=== PATIENT | female | born 1950 ===

== ENCOUNTER 2017-02-08 15:55 | Inpatient (IN) | payer MEDICARE ==
[2017-02-08 15:56] VITALS: BMI 34.7
[2017-02-08] MEDS ORDERED: Enalaprilat 2.5 MG/2 ML IV STA (16:35)
[2017-02-08] MEDS ORDERED: Enalaprilat 2.5 MG/2 ML ONE (16:43)
[2017-02-08 16:44] LABS: BASO # 0.1 K/uL (0.0-0.2); BASO % 0.7 % (0.0-2.0); EOS # 0.2 K/uL (0.0-0.7); EOS % 2.5 % (0.0-4.0); HEMATOCRIT 38.7 % (34.0-47.0); LYMPH # 1.1 K/uL (1.0-4.3); MEAN CELL VOLUME 74.2 fL (81.0-99.0); MEAN CORPUSCULAR HEMOGLOBIN 23.6 pg (27.0-31.0); MEAN CORPUSCULAR HGB CONC 31.8 g/dL (33.0-37.0); MEAN PLATELET VOLUME 8.5 fL (7.2-11.7); MONO # 0.5 K/uL (0.0-0.8); MONO % 5.6 % (0.0-10.0); WHITE BLOOD COUNT 9.3 K/uL (4.8-10.8)
[2017-02-08 16:52] LABS: CHLORIDE 94 mmol/L (98-107); INR 0.9
[2017-02-08 16:53] LABS: SODIUM 134 mmol/L (132-148)
[2017-02-08 16:55] LABS: ALB/GLOB RATIO 0.9 (1.0-2.1); ALKALINE PHOSPHATASE 135 U/L (38-126); ALT/SGPT 23 U/L (9-52); AST/SGOT 23 U/L (14-36); BILIRUBIN,TOTAL 0.3 mg/dL (0.2-1.3); BLOOD UREA NITROGEN 17 mg/dL (7-17); CARBON DIOXIDE 25 mmol/L (22-30); GFR AFRICAN-AMERICAN > 60; GLUCOSE,RANDOM 189 mg/dL (65-105); TOTAL PROTEIN 7.7 g/dL (6.3-8.3)
[2017-02-08 16:56] LABS: CALCIUM 8.8 mg/dl (8.6-10.4); MAGNESIUM 1.8 mg/dL (1.6-2.3)
--- NOTE | 2017-02-08 17:00 | C.PDOC ---
Time Seen by Provider: 02/08/17 16:24 Chief Complaint (Nursing): High Blood Pressure History Per: Patient, Health Care Law Specialist History/Exam Limitations: language barrier Onset/Duration Of Symptoms: Hrs Current Symptoms Are (Timing): Still Present Associated Symptoms: Headache Severity: Moderate Exacerbating Factor(s): Pos: Increased Salt/Salty Foods Additional History Per: Prior Records Past Medical History Reviewed: Historical Data, Nursing Documentation, Vital Signs Vital Signs: Last Vital Signs Temp 97.2 F L 02/08/17 16:00 Pulse 59 L 02/08/17 18:09 Resp 20 02/08/17 18:09 BP 203/69 H 02/08/17 19:00 Pulse Ox 97 02/08/17 18:09 - Medical History PMH: HTN - [facility] Procedures COLONOSCOPY (05/19/13) ESOPHAGEAL DILATION (07/15/13) ESOPHAGOGASTRODUODENOSCOPY [EGD] W/CLOSED BIOPSY (07/15/13) OTHER ESOPHAGOSCOPY (05/19/13) Family History: States: Unknown Family Hx - Social History Hx Alcohol Use: No Hx Substance Use: No - Immunization History Hx Tetanus Toxoid Vaccination: No Hx Influenza Vaccination: Yes Hx Pneumococcal Vaccination: No Review Of Systems Except As Marked, All Systems Reviewed And Found Negative. Constitutional: Negative for: Fever, Weakness Cardiovascular: Negative for: Chest Pain Respiratory: Negative for: Shortness of Breath Gastrointestinal: Negative for: Vomiting, Abdominal Pain Musculoskeletal: Negative for: Neck Pain, Back Pain Skin: Negative for: Rash Neurological: Positive for: Headache. Negative for: Weakness, Numbness, Seizures, Altered Mental Status Physical Exam - Physical Exam Appears: Non-toxic, No Acute Distress Skin: Normal Color, Warm, Dry, No Rash Head: Atraumatic, Normacephalic Eye(s): bilateral: PERRL, EOMI Neck: Normal ROM, Supple Cardiovascular: Rhythm Regular Respiratory: Normal Breath Sounds, No Accessory Muscle Use Gastrointestinal/Abdominal: Soft, No Tenderness Back: No CVA Tenderness Extremity: Normal ROM Neurological/Psych: Oriented x3, Normal Speech, Normal Cognition, No Cerebellar Signs, Normal Motor, Normal Sensation ED Course And Treatment - Laboratory Results Result Diagrams: 02/08/17 16:41 02/08/17 16:41 Lab Interpretation: No Acute Changes ECG: Interpreted By Me, Viewed By Me ECG Rhythm: Sinus Rhythm, Nonspecific Changes ECG Interpretation: Abnormal Interpretation Of ECG: LVH with a strain pattern. Rate From EC O2 Sat by Pulse Oximetry: 98 Pulse Ox Interpretation: Normal - CT Scan/US CT head Other Rad Studies (CT/US): Read By Radiologist, Radiology Report Reviewed CT/US Interpretation: IMPRESSION: No evidence of acute intracranial hemorrhage intracranial collection mass effect or midline shift. - Physician Consult Information Physician Contacted: Jeff Barrera (ICU) Outcome Of Conversation: He evaluated pt in the ED and did not accept to ICU. Progress - Interventions Interventions:: Observation - Medications Administered Oral: Antihypertensive Intravenous: Antihypertensive - Data Reviewed Data Reviewed: Lab, Diagnostic imaging, EKG, Old records - Patient Status Patient status: Partially improved - Critical Care Citical Care: Excluding Proc Time Critical Care Time: 60 minutes - Continuity of Care Discussed patient case with:: Patient, Family-HIPPA compliant, ED Nurse, Covering for PMD Discussed pt. case with bridal sales consultant/specialty: Pulmonary/Crit. Care - Patient Plan Patient Plan: Admission, Telemetry Disposition Discussed With : Rebecca Hernandez Comment: He accepted pt on his service. Doctor Will See Patient In The: Hospital Counseled Patient/Family Regarding: Studies Performed, Diagnosis - Disposition Disposition: HOSPITALIZED Disposition Time: 21:21 Condition: GUARDED - Clinical Impression Clinical Impression: Hypertensive urgency
--- NOTE | 2017-02-08 17:37 | CT ---
PROCEDURE: CT HEAD WITHOUT CONTRAST. HISTORY: Headache, HTN COMPARISON: None available. TECHNIQUE: Axial computed tomography images were obtained through the head/brain without intravenous contrast. This CT exam was performed using one or more of the following dose reduction techniques: Automated exposure control, adjustment of the mA and/or kv according to patient size, and/or use of iterative reconstruction technique. Radiation dose: Total exam DLP = 792.29 mGy-cm. FINDINGS: HEMORRHAGE: No intracranial hemorrhage. BRAIN: No mass effect or edema. No atrophy or chronic microvascular ischemic changes. VENTRICLES: Unremarkable. No hydrocephalus. CALVARIUM: Unremarkable. PARANASAL SINUSES: Unremarkable as visualized. No significant inflammatory changes. MASTOID AIR CELLS: Unremarkable as visualized. No inflammatory changes. OTHER FINDINGS: None. IMPRESSION: No evidence of acute intracranial hemorrhage intracranial collection mass effect or midline shift.
[2017-02-08] MEDS ORDERED: Labetalol 25mg/5ml Syringe IVP STA (17:51)
[2017-02-08] MEDS ORDERED: Labetalol 25mg/5ml Syringe ONE (17:59)
[2017-02-08] MEDS ORDERED: Nitroglycerin 50mg in D5W 250 ML IV STA (19:49)
[2017-02-08] MEDS ORDERED: Nitroglycerin 50mg in D5W 250 ML IV ONE (19:54)
--- NOTE | 2017-02-08 22:20 | CP.PCM.CON ---
History of Present Illness - History of Present Illness History of Present Illness: 66 F evaluated for HTN. PMH of HTN on 5 meds, Coreg 25mg bid, bystolic 20mg, Valsartan 360, hctz 12.5, nitro patch, h/o CAD s/p PCI x3, h/o niddm, was sent in to hospital for HTN from pmd office. Patient was refereed to pmd office from her opthalmologist office for htn where she went for routine eval. In ER BP ranged systolic in 200s, distolic in 70-80. Patient denies sob, cp, nvd, dizziness, c/o slight headache in the back of head, but nothing unusual. In ER patient received enalpril 2.5mg iv, labetalol 20mg iv, norvasc 5mg oral, bp remained unchanged. Nitro drip was then started and icu eval called. Patient evaluated above history confirmed, and patient was in no distress PMH as above Allergies ampicillin Meds reviewed above + metformin, dexilant Family history not contributory Social Denies alcohol, drugs, smoking ativan 0.5mg added and nitro patch put again, nitro drip stopped Repeat bp 181/49 =>140/49 Review of Systems - Review of Systems All systems: reviewed and no additional remarkable complaints except (HPI) Past Patient History - Past Social History Smoking Status: Never Smoked Alcohol: None - CARDIAC Hx Hypertension: Yes - HEENT Hx Cataracts: Yes - ENDOCRINE/METABOLIC Hx Diabetes Mellitus Type 2: Yes - PSYCHIATRIC Hx Substance Use: No - ANESTHESIA Hx Anesthesia: No Meds Allergies/Adverse Reactions: Allergies Allergy/AdvReac Type Severity Reaction Status Date / Time ampicillin Allergy Verified 02/08/17 16:38 Physical Exam - Additional Findings Additional findings: * HEENT BESSY * Neck supple * Chest clear, no rales, no wheezes * CVS Regular no gallop or rub * PA soft, nt, bs present * Ext no edema * Skin normal turgor, euvolemic * 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 Assessment & Plan - Assessment and Plan (Free Text) Assessment: * Uncontrolled HTN of long duration with LVH strain pattern, but no acute decompensation, improvement in BP with above meds with also addition of ativan iv suggesting some anxiety component * H/o CAD * NIDDM Plan: * BP improved, patient needs technician terminal and repeater bp management rather acute, adding amlodipine for diastolic dysfunction and next probably aterior dialators * Out patient w/u, screening for secondary causes of htn * Non urgent echo * D/w er physician, and pmd.
[2017-02-09 01:41] VITALS: RESP 20
[2017-02-09] MEDS: (Novolin R) Insulin Human Regular 100 units/ml vial SC SCH ×2 (07:46→13:08)
[2017-02-09 08:11] VITALS: BP 154/72; TEMP 98; O2SAT 96
[2017-02-09 08:25] VITALS: PULSE 62
[2017-02-09] MEDS ORDERED: hydroCHLOROthiazide-Triamterene 25 mg-37.5 mg Cap UD PO SCH (10:00)
--- NOTE | 2017-02-09 10:37 | US ---
PROCEDURE: Ultrasound of the Kidneys HISTORY: htn COMPARISON: None available. TECHNIQUE: Sonogram of the kidneys. FINDINGS: RIGHT KIDNEY: Measures: 11.8 x 4.3 x 4.4 cm. Normal in size, contour and echogenicity. No stone, solid mass lesion or hydronephrosis visualized. LEFT KIDNEY: Measures: 11.5 x 4.2 x 5.1 cm. There is a echogenic lesion seen at the mid to upper pole left kidney measures 0.8 x 0.8 x 0.7 centimeter. No stone, solid mass lesion or hydronephrosis visualized. OTHER FINDINGS: None. IMPRESSION: No evidence of hydronephrosis. Sub centimeter echogenic lesion seen at the mid to upper pole left kidney. Interval follow-up reassessment or further assessment by other modality is suggested.
--- NOTE | 2017-02-09 13:03 | CP.PCM.HP ---
History of Present Illness - History of Present Illness History of Present Illness: 66-year-old female with history of hypertension, CAD, diabetes, poorly uncontrolled came to the emergency room with uncontrolled hypertension. Patient went to see the PMD, Dr. King, and the blood pressure was noted to be elevated, and the patient was told to come to the emergency room. Patient was having no other acute symptoms, but the uncontrolled blood pressure noted, systolic pressure is more than 200 noted. Present on Admission - Present on Admission Any Indicators Present on Admission: No History of DVT/PE: No History of Uncontrolled Diabetes: No Urinary Catheter: No Decubitus Ulcer Present: No Review of Systems - Review of Systems All systems: reviewed and no additional remarkable complaints except Review of Systems: Patient having increasing symptoms of nausea, but no abdominal pain noted, denies any chest pain, no palpitation, but concerned about the elevated blood pressure. Sleeping is not good, patient is very anxious. Family was at bedside, including patient's , I spoke to him in details. Past Patient History - Past Medical History & Family History Past Medical History?: Yes - Past Social History Smoking Status: Never Smoked - CARDIAC Hx Cardiac Disorders: Yes Hx Hypertension: Yes Other/Comment: CAD s/p stents x3 - PULMONARY Hx Respiratory Disorders: No - NEUROLOGICAL Hx Neurological Disorder: No - HEENT Hx HEENT Problems: Yes Hx Cataracts: Yes - RENAL Hx Chronic Kidney Disease: No - ENDOCRINE/METABOLIC Hx Endocrine Disorders: Yes Hx Diabetes Mellitus Type 2: Yes - HEMATOLOGICAL/ONCOLOGICAL Hx Blood Disorders: No - INTEGUMENTARY Hx Dermatological Problems: Yes Hx Wall: Yes (Left forearm, healed) - MUSCULOSKELETAL/RHEUMATOLOGICAL Hx Musculoskeletal Disorders: Yes Hx Falls: No Other/Comment: Left hand pain "in the bones" - GASTROINTESTINAL Hx Gastrointestinal Disorders: Yes Hx Gastritis: Yes - GENITOURINARY/GYNECOLOGICAL Hx Genitourinary Disorders: Yes Hx Incontinence: Yes (Induced by stress) - PSYCHIATRIC Hx Psychophysiologic Disorder: Yes Hx Depression: Yes Hx Substance Use: No - SURGICAL HISTORY Hx Surgeries: Yes Hx Coronary Stent: Yes (x3) Other/Comment: Left breast biopsy - ANESTHESIA Hx Anesthesia: Yes Hx Anesthesia Reactions: No Hx Malignant Hyperthermia: No Meds Home Medications: Home Medication List Medication Instructions Recorded Confirmed Type Isosorbide Mononitrate [Imdur] 30 mg PO QPM #30 tab 02/09/17 Rx Triamterene/Hydrochlorothiazid 1 cap PO DAILY #30 cap 02/09/17 Rx [Triamterene-Hydrochlorothiazide 25 mg-37.5 mg] Valsartan 320 mg PO DAILY #30 tablet 02/09/17 Rx Allergies/Adverse Reactions: Allergies Allergy/AdvReac Type Severity Reaction Status Date / Time ampicillin Allergy Verified 02/08/17 16:38 Physical Exam - Constitutional Additional comments: On examination: HEENT PERRLA, neck supple No thyromegaly was noted and no cervical adenopathy noted Chest bilateral good air entry, no wheezing or rales noted CVS regular heart sound, no murmur Abdomen soft and no organomegaly Extremities no pedal edema, no leg swelling, pedal pulses are good. [employer] alert awake oriented x3 no functional neurological deficit Results - Vital Signs Recent Vital Signs: Last Vital Signs Temp 98.0 F 02/09/17 08:08 Pulse 62 02/09/17 08:22 Resp 20 02/09/17 08:08 BP 154/72 H 02/09/17 08:08 Pulse Ox 96 02/09/17 08:08 - Labs Result Diagrams: 02/08/17 16:41 02/08/17 16:41 Labs: Laboratory Results - last 24 hr 02/09/17 02/09/17 07:18 11:14 POC Glucose (mg/dL) 207 H 315 H Assessment & Plan (1) Hypertensive urgency Assessment and Plan: 66-year-old male with history of hypertension, diabetes, hypercholesteremia, now admitted with hypertensive emergency and urgency. But there is no involvement damage noted. Patient was given multiple will antihypertensives. I suggested to be monitored in the hospital. Closely, watchiing. Will continue to monitor. And glucose control also advised to. Status: Acute
--- NOTE | 2017-02-09 13:05 | CP.PCM.DIS ---
Provider - Provider Date of Admission: 02/08/17 21:23 Attending physician: Rebecca Hernandez MD Time Spent in preparation of Discharge (in minutes): 45 Hospital Course - Lab Results Lab Results: Most Recent Lab Values WBC 9.3 K/uL (4.8-10.8) 02/08/17 16:41 RBC 5.21 Mil/uL (3.80-5.20) H 02/08/17 16:41 Hgb 12.3 g/dL (11.0-16.0) 02/08/17 16:41 Hct 38.7 % (34.0-47.0) 02/08/17 16:41 MCV 74.2 fL (81.0-99.0) L D 02/08/17 16:41 MCH 23.6 pg (27.0-31.0) L 02/08/17 16:41 MCHC 31.8 g/dL (33.0-37.0) L 02/08/17 16:41 RDW 16.0 % (11.5-14.5) H 02/08/17 16:41 Plt Count 170 K/uL (130-400) 02/08/17 16:41 MPV 8.5 fL (7.2-11.7) 02/08/17 16:41 Neut % (Auto) 79.2 % (50.0-75.0) H 02/08/17 16:41 Lymph % (Auto) 12.0 % (20.0-40.0) L 02/08/17 16:41 [place] % (Auto) 5.6 % (0.0-10.0) 02/08/17 16:41 Eos % (Auto) 2.5 % (0.0-4.0) 02/08/17 16:41 Baso % (Auto) 0.7 % (0.0-2.0) 02/08/17 16:41 Neut # 7.3 K/uL (1.8-7.0) H 02/08/17 16:41 Lymph # 1.1 K/uL (1.0-4.3) 02/08/17 16:41 [place] # 0.5 K/uL (0.0-0.8) 02/08/17 16:41 Eos # 0.2 K/uL (0.0-0.7) 02/08/17 16:41 Baso # 0.1 K/uL (0.0-0.2) 02/08/17 16:41 PT 10.3 SECONDS (9.7-12.2) 02/08/17 16:41 INR 0.9 02/08/17 16:41 APTT 37 SECONDS (21-34) H 02/08/17 16:41 Sodium 134 mmol/L (132-148) 02/08/17 16:41 Potassium 4.0 mmol/L (3.6-5.2) 02/08/17 16:41 Chloride 94 mmol/L (98-107) L 02/08/17 16:41 Carbon Dioxide 25 mmol/L (22-30) 02/08/17 16:41 Anion Gap 19 (10-20) 02/08/17 16:41 BUN 17 mg/dL (7-17) 02/08/17 16:41 Creatinine 0.7 MG/DL (0.7-1.2) 02/08/17 16:41 Est GFR ( Amer) > 60 02/08/17 16:41 Est GFR (Non-Af Amer) > 60 02/08/17 16:41 POC Glucose (mg/dL) 315 mg/dL (65-110) H 02/09/17 11:14 Random Glucose 189 mg/dL (65-105) H 02/08/17 16:41 Calcium 8.8 mg/dl (8.6-10.4) 02/08/17 16:41 Magnesium 1.8 mg/dL (1.6-2.3) 02/08/17 16:41 Total Bilirubin 0.3 mg/dL (0.2-1.3) 02/08/17 16:41 AST 23 U/L (14-36) 02/08/17 16:41 ALT 23 U/L (9-52) 02/08/17 16:41 Alkaline Phosphatase 135 U/L (38-126) H D 02/08/17 16:41 Troponin I < 0.0120 ng/mL (0.00-0.120) 02/08/17 16:41 Total Protein 7.7 g/dL (6.3-8.3) 02/08/17 16:41 Albumin 3.7 g/dL (3.5-5.0) 02/08/17 16:41 Globulin 4.0 gm/dL (2.2-3.9) H 02/08/17 16:41 Albumin/Globulin Ratio 0.9 (1.0-2.1) L 02/08/17 16:41 - Hospital Course Hospital Course: 66-year-old female with history hypertension, diabetes, hypercholesterolemia, admitted to the hospital with acute hypertensive crisis. Multiple oral medication as well as intravenous medication in the emergency room did not control the blood pressure. Because of that the patient was hospitalized. Close monitoring, blood pressure was noted. Patient was given Xanax currently improved BP. She slept well, and the following day patient blood pressure is controlled well with the medications. Currently patient is stable. Patient will be discharged home, and she will follow up as an outpatient. Final diagnosis acute hypertensive crisis. Uncontrolled diabetes, hypercholesteremia. CAD. Continue the current treatment and will follow the patient. I spoke to the patient's a in details about the condition, in 2 days will follow the patient office Discharge Plan - Discharge Medications Prescriptions: Isosorbide Mononitrate [Imdur] 30 mg PO QPM #30 tab Triamterene/Hydrochlorothiazid [Triamterene-Hydrochlorothiazide 25 mg-37.5 mg] 1 cap PO DAILY #30 cap Valsartan 320 mg PO DAILY #30 tablet - Follow Up Plan Condition: GUARDED Disposition: HOME/ ROUTINE Instructions: Hypertension (DC), Hypertension (GEN)
== END 2017-02-09 14:20 | disposition home or self-care (01) | DRG 305 ==
LOC: C.ER 15:55 → C.9E 21:23 → C.6T 22:21
PROVIDERS: ADMIT Internal Medicine; ATTEND Internal Medicine
DX: I16.0 Hypertensive urgency (principal); E11.9 Type 2 diabetes mellitus without complications; I10 Essential (primary) hypertension; I25.10 Atherosclerotic heart disease of native coronary artery without angina pectoris; H26.9 Unspecified cataract; Z87.19 Personal history of other diseases of the digestive system; Z79.4 Long term (current) use of insulin; Z95.5 Presence of coronary angioplasty implant and graft

== ENCOUNTER 2018-05-08 00:56 | Emergency (ER) | payer MEDICARE ==
[2018-05-08 00:56] VITALS: BMI 34.7
[2018-05-08 01:20] VITALS: RESP 18; O2SAT 99
--- NOTE | 2018-05-08 01:35 | C.PDOC ---
History Of Present Illness 67 y/o female with PMHx of hypertension presents to the ED complaining of dizziness, lightheadedness, and ear ringing, for 2 days. Patient describes dizziness as room spinning, which worsens when she looks up or down. Also complaining of an occipital headache. Patient states she has not felt like herself over the last month since her dog . Reports she has had a recent upper respiratory infection. She currently denies any chest pain, SOB, wheezing , or visual changes. Denies noncompliance with HTN meds. Time Seen by Provider: 05/08/18 01:26 Chief Complaint (Nursing): Dizziness/Lightheaded History Per: Patient History/Exam Limitations: no limitations Onset/Duration Of Symptoms: Days (x2) Current Symptoms Are (Timing): Still Present Past Medical History Reviewed: Historical Data, Nursing Documentation, Vital Signs Vital Signs: Last Vital Signs Temp 97.8 F 05/08/18 03:29 Pulse 65 05/08/18 03:29 Resp 18 05/08/18 03:29 BP 172/64 H 05/08/18 03:29 Pulse Ox 99 05/08/18 03:29 - Medical History PMH: Anxiety, Depression, Gastritis, HTN, Hyperlipidemia Denies: Chronic Kidney Disease Surgical History: Coronary Stent (x3) - [facility] Procedures COLONOSCOPY (05/19/13) ESOPHAGEAL DILATION (07/15/13) ESOPHAGOGASTRODUODENOSCOPY [EGD] W/CLOSED BIOPSY (07/15/13) OTHER ESOPHAGOSCOPY (05/19/13) Family History: States: Unknown Family Hx - Social History Hx Alcohol Use: No Hx Substance Use: No - Immunization History Hx Tetanus Toxoid Vaccination: No Hx Influenza Vaccination: Yes Hx Pneumococcal Vaccination: No Review Of Systems Except As Marked, All Systems Reviewed And Found Negative. Constitutional: Negative for: Fever Eyes: Negative for: Vision Change ENT: Positive for: Other (Ear ringing) Cardiovascular: Positive for: Light Headedness. Negative for: Chest Pain Respiratory: Negative for: Shortness of Breath, Wheezing Neurological: Positive for: Headache, Dizziness Physical Exam - Physical Exam Appears: Non-toxic, No Acute Distress, Other (Tearful upon interview when discussing dog) Skin: Normal Color, Warm, Dry Head: Atraumatic, Normacephalic, Other (no pressure on palpation of sinuses) Eye(s): bilateral: Normal Inspection, PERRL, EOMI Ear(s): Bilateral: Normal Oral Mucosa: Moist Neck: Normal ROM, Trachea Midline, No Midline Cervical Tenderness, No Paracervical Tenderness, Supple Chest: Symmetrical Cardiovascular: Rhythm Regular, No Murmur, Other (S1, S2 are wnl) Respiratory: Normal Breath Sounds, No Rales, No Rhonchi, No Wheezing Gastrointestinal/Abdominal: Soft, No Tenderness, No Distention Extremity: Bilateral: Atraumatic, Normal Color And Temperature, Normal ROM Pulses: Left Dorsalis Pedis: Normal, Right Dorsalis Pedis: Normal Neurological/Psych: Oriented x3, Normal Speech, Normal Cranial Nerves (CN 2-12 intact), Normal Motor (5/5 motor strength throughout), Normal Sensation (no gross sensory deficits) ED Course And Treatment - Laboratory Results Result Diagrams: 05/08/18 01:58 05/08/18 01:58 ECG: Interpreted By Me ECG Rhythm: Sinus Rhythm ECG Interpretation: Normal Interpretation Of ECG: LVH with strain,otherwise neg Rate From EC O2 Sat by Pulse Oximetry: 99 (RA) Pulse Ox Interpretation: Normal - CT Scan/US Head CT Other Rad Studies (CT/US): Read By Radiologist, Radiology Report Reviewed CT/US Interpretation: Name: JIM LEWIS Age: 67Years F Date: 05/08/2018. Requesting Physician: Nataliya Lowry : 1950. [facility] Procedure Ordered As Accession Number of Images. CT HEAD WO CT HEAD W O CONTRAST [id number] 130. Provided Clinical History: dizziness. CONFIDENTIALITY STATEMENT. This report is intended only for the use of the referring physician, and only in accordance with law, If you received this in error, call [phone]. Page 1 of 1. EXAM: CT Head Without Intravenous Contrast. CLINICAL HISTORY: 67 years old, female; Pain; Headache and other: Dizziness; Patient HX: 02-08-17. TECHNIQUE: Axial computed tomography images of the head/brain without intravenous contrast. All CT scans at. this facility use at least one of these dose optimization techniques: automated exposure control; mA. and/or kV adjustment per patient size (includes targeted exams where dose is matched to clinical. indication); or iterative reconstruction. COMPARISON: CT - HEAD W/O CONTRAST 2017-02-08 17:08. FINDINGS: Brain: There is mild diffuse cerebral atrophy present, consistent with this patient's age. No. hemorrhage. No significant white matter disease. Ventricles: The ventricular system demonstrates mild diffuse compensatory enlargement. Bones/ joints: Unremarkable. No acute fracture. Soft tissues: Unremarkable. Sinuses: There is diffuse mucoperiosteal thickening in the ethmoid sinuses, consistent with chronic. sinusitis. Mastoid air cells: Unremarkable as visualized. No mastoid effusion. IMPRESSION: No acute intracranial findings. Thank you for allowing us to participate in the care of your patient. Dictated and Authenticated by: Princess Reynolds MD. 05/08/2018 3:05 AM Eastern Time ([place] & [place]) Medical Decision Making Medical Decision Making: Initial Impression: Vertigo, poorly controlled blood pressure Plan: --Routine labs --CT Head --Meclizine PO --Reassess after meds given Progress/Updates: CT is normal. Disposition - Disposition Referrals: Alberto King [Staff Provider] - Disposition: HOME/ ROUTINE Disposition Time: 04:53 Condition: FAIR Prescriptions: Meclizine [Antivert] 12.5 mg PO TID PRN #15 tab PRN Reason: dizziness Instructions: Vertigo (a Type of Dizziness), High Blood Pressure (DC) Forms: [employer] (Lithuanian) Print Language: MONTENEGRIN - Clinical Impression Clinical Impression: Anxiety, Vertigo - Scribe Statement The provider has reviewed the documentation as recorded by the Scribe (Daphne Tam) Provider Attestation: All medical record entries made by the Scribe were at my direction and personally dictated by me. I have reviewed the chart and agree that the record accurately reflects my personal performance of the history, physical exam, medical decision making, and the department course for this patient. I have also personally directed, reviewed, and agree with the discharge instructions and disposition.
[2018-05-08 02:08] LABS: BASO # 0.1 K/uL (0.0-0.2); BASO % 0.9 % (0.0-2.0); EOS # 0.2 K/uL (0.0-0.7); HEMOGLOBIN 10.4 g/dL (11.0-16.0); LYMPH # 0.9 K/uL (1.0-4.3); LYMPH % 10.7 % (20.0-40.0); MEAN CELL VOLUME 75.7 fL (81.0-99.0); MEAN CORPUSCULAR HEMOGLOBIN 24.2 pg (27.0-31.0); MEAN CORPUSCULAR HGB CONC 31.9 g/dL (33.0-37.0); MEAN PLATELET VOLUME 8.9 fL (7.2-11.7); MONO # 0.4 K/uL (0.0-0.8); MONO % 5.3 % (0.0-10.0); NEUT # 6.7 K/uL (1.8-7.0); NEUT % 80.1 % (50.0-75.0); RBC 4.31 Mil/uL (3.80-5.20); RED CELL DISTRIBUTION WIDTH 15.1 % (11.5-14.5); WHITE BLOOD COUNT 8.3 K/uL (4.8-10.8)
[2018-05-08 02:13] LABS: URINE BILIRUBIN NEGATIVE (NEGATIVE); URINE BLOOD NEGATIVE (NEGATIVE); URINE CLARITY Clear (Clear); URINE COLOR Colorless (YELLOW); URINE GLUCOSE (UA) NORMAL (Normal); URINE LEUKOCYTE ESTERASE NEG Leu/uL (Negative); URINE PROTEIN 1+ mg/dL (NEGATIVE); URINE UROBILINOGEN NORMAL mg/dL (0.2-1.0)
[2018-05-08 02:14] LABS: ALB/GLOB RATIO 1.1 (1.0-2.1); ALBUMIN 3.8 g/dL (3.5-5.0); ALT/SGPT 26 U/L (9-52); AST/SGOT 18 U/L (14-36); BLOOD UREA NITROGEN 30 mg/dL (7-17); CALCIUM 8.7 mg/dl (8.6-10.4); GFR AFRICAN-AMERICAN 60; GFR NON-AFRICAN AMERICAN 49
[2018-05-08 03:31] VITALS: BP 172/64; PULSE 65; TEMP 97.8
--- NOTE | 2018-05-08 07:45 | CT ---
PROCEDURE: CT HEAD WITHOUT CONTRAST. HISTORY: dizziness COMPARISON: None available. TECHNIQUE: Axial computed tomography images were obtained through the head/brain without intravenous contrast. Radiation dose: Total exam DLP = 832 mGy-cm. This CT exam was performed using one or more of the following dose reduction techniques: Automated exposure control, adjustment of the mA and/or kV according to patient size, and/or use of iterative reconstruction technique. FINDINGS: HEMORRHAGE: No intracranial hemorrhage. BRAIN: No mass effect or edema. Scattered focal lucencies in the subcortical and periventricular white matter suggestive for chronic microvascular ischemic change. Mild diffuse cerebral atrophy present. VENTRICLES: Mild diffuse compensatory enlargement. CALVARIUM: Unremarkable. PARANASAL SINUSES: Diffuse mucoperiosteal thickening in the ethmoid sinuses consistent with chronic sinusitis. MASTOID AIR CELLS: Unremarkable as visualized. No inflammatory changes. OTHER FINDINGS: None. IMPRESSION: No acute intracranial abnormality. Chronic microvascular ischemic changes. Atrophy. Sinus mucosal disease. If symptoms persists, consider correlation with MRI. These findings were preliminarily reported at 3:05 a.m. on 05/08/[address] Princess Reynolds from [facility].
--- NOTE | 2018-05-11 18:13 | CARD ---
APPROVED REPORT EKG Measurement Heart [id number] <Conclusion> Normal sinus rhythm LVH with repolarization abnormality. Abnormal ECG
== END 2018-05-08 03:41 | disposition home or self-care (01) ==
LOC: SUPCPDRO 00:56 → C.ER 00:56
DX: R42 Dizziness and giddiness (principal); F41.9 Anxiety disorder, unspecified